=== PATIENT | male | born 1980 | race Two or more races ===

== ENCOUNTER 2017-05-29 18:31 | Emergency (ER) | payer MEDICAID, OTHER ==
[~2017-05-29] VITALS: Ht 172.7 cm; Wt 82.5 kg
[~2017-05-29 18:31] MED LIST: None per pt
[2017-05-29 18:35] VITALS: BP 126/79
[2017-05-29] MEDS ORDERED: HYDROcodone/APAP 5/325 TABLET PO STA (19:35)
[2017-05-29] MEDS ORDERED: DEXAMETHASONE 4 MG TABLET PO STA (19:35)
[2017-05-29] MEDS ORDERED: HYDROcodone/APAP 5/325 TABLET ONE (19:49)
[2017-05-29] MEDS ORDERED: DEXAMETHASONE 4 MG TABLET ONE (19:49)
== END 2017-05-29 20:13 | disposition home or self-care (01) ==
LOC: ED 19:50
DX: L01.01 Non-bullous impetigo (principal); K12.0 Recurrent oral aphthae; H92.03 Otalgia, bilateral; R51 Headache; Z87.891 Personal history of nicotine dependence
CPT/HCPCS: 99283

== ENCOUNTER 2017-08-15 17:42 | Emergency (ER) | payer OTHER ==
[~2017-08-15] VITALS: Ht 172.7 cm; Wt 85.3 kg
[2017-08-15] MEDS ORDERED: NAPR-856 PO (18:25)
[2017-08-15] MEDS ORDERED: METH750T2 PO (18:25)
[2017-08-15] MEDS ORDERED: SODIUM CHLORIDE FLUSH 10ML SYR IVF ONE (18:30)
[2017-08-15 19:26] LABS: BASOPHILS # (AUTO) 0.03 x10^3/uL (0-0.1); BASOPHILS % (AUTO) 0 % (0-1); EOSINOPHILS # (AUTO) 1.17 x10^3/uL (0-0.4); EOSINOPHILS % (AUTO) 15 % (1-7); LYMPHOCYTES # (AUTO) 3.07 x10^3/uL (1-3.4); LYMPHOCYTES % (AUTO) 39 % (22-44); MD NO; MEAN CORPUSCULAR HEMOGLOBIN 30.4 pg (27.5-34.5); MEAN CORPUSCULAR VOLUME 89.5 fL (81-97); MEAN PLATELET VOLUME 9.8 fL (7.4-10.4); MONOCYTES # (AUTO) 0.79 x10^3/uL (0.2-0.8); MONOCYTES % (AUTO) 10 % (2-9); NEUTROPHILS % (AUTO) 37 % (42-75); PLATELET COUNT 251 x10^3/uL (130-400); RED BLOOD COUNT 4.78 x10^6/uL (4.38-5.82); RED CELL DISTRIBUTION WIDTH 13.7 % (9.4-14.8)
[2017-08-15] MEDS ORDERED: CLINDAMYCIN 300 MG CAPSULE PO ONE (19:30)
[2017-08-15 19:32] LABS: ALBUMIN 3.4 g/dL (3.4-5.0); ANION GAP 6 mmol/L (5-15); CALCIUM 7.6 mg/dL (8.5-10.1); CHLORIDE 106 mmol/L (98-107); CREATININE 1.08 mg/dL (0.7-1.3)
[2017-08-15] MEDS ORDERED: CLINDAMYCIN 300 MG CAPSULE ONE (20:01)
[2017-08-15 20:43] VITALS: BP 129/74
== END 2017-08-15 20:44 | disposition home or self-care (01) ==
LOC: ED 20:09
DX: L03.115 Cellulitis of right lower limb (principal); Z87.891 Personal history of nicotine dependence
CPT/HCPCS: 36415; 80048; 82040; 85025; 99285